=== PATIENT | male | born 1970 | race Hispanic/Latino ===

== ENCOUNTER 2023-08-04 10:09 | Day surgery (SDC) | payer OTHER ==
[2023-07-31 20:02] VITALS: BP 158/84; PULSE 82; RESP 18
[2023-08-04] VITALS (8 sets, daily range): BP systolic 122–142; BP diastolic 58–90; PULSE 61–73; RESP 14–15
[~2023-08-04] VITALS: Ht 180.3 cm; Wt 93.8 kg
[~2023-08-04 10:09] MED LIST: MULT-1367 PO
[2023-08-04] MEDS ORDERED: LIDOCAINE PF 100MG/5ML (2%) SYRINGE 5ML ONE (11:20)
[2023-08-04] MEDS ORDERED: PROPOFOL 10 MG/ML 20ML VIAL IV ONE (11:20)
== END 2023-08-04 12:45 | disposition home or self-care (01) ==
LOC: ENDO 10:09 → DAH 10:09 → ENDO 12:45
PROVIDERS: ATTEND Internal Medicine Gastroenterology
DX: Z01.818 Encounter for other preprocedural examination (principal); K57.30 Diverticulosis of large intestine without perforation or abscess without bleeding; K57.32 Diverticulitis of large intestine without perforation or abscess without bleeding; K63.5 Polyp of colon; K62.89 Other specified diseases of anus and rectum; K64.0 First degree hemorrhoids; K63.89 Other specified diseases of intestine; Z79.01 Long term (current) use of anticoagulants; Z86.16 Personal history of COVID-19; Z90.49 Acquired absence of other specified parts of digestive tract; Z82.49 Family history of ischemic heart disease and other diseases of the circulatory system; Z83.438 Family history of other disorder of lipoprotein metabolism and other lipidemia; Z87.891 Personal history of nicotine dependence; Z72.89 Other problems related to lifestyle
CPT/HCPCS: 88305; 44394; 44389; J2001; J2704; A4620; A4215 ×2; A4223; A7002; A4222; A4221; A4663; J7030; A4606; 44388; J3490